=== PATIENT | female | born 1975 | race Two or more races ===

== ENCOUNTER 2024-02-29 04:35 | Day surgery (SDC) | payer BC, OTHER ==
[2024-02-24 14:46] VITALS: BMI 30.1
[2024-02-29] MEDS ORDERED: ONDANSETRON 4 MG/2 ML VIAL ONE (11:16)
[2024-02-29] MEDS ORDERED: LIDOCAINE HCL/PF 2% SDV 5ML VIAL ONE (11:16)
[2024-02-29] MEDS ORDERED: DEXAMETHASONE SOD PHOSPHATE 4 MG/1 ML VIAL ONE (11:16)
[2024-02-29] MEDS ORDERED: PROPOFOL 40 ML ONE (11:17)
[2024-02-29] MEDS ORDERED: MIDAZOLAM HCL 2 MG/2 ML SINGLE DOSE VIAL ONE (11:17)
[2024-02-29] MEDS ORDERED: ONDANSETRON 4 MG/2 ML VIAL IVPUSH PRN (11:36)
[2024-02-29] MEDS ORDERED: oxyCODONE HCL 5 MG TABLET PO PRN (11:36)
[2024-02-29] MEDS ORDERED: LACTATED RINGERS SOLUTION 1,000 ML IV SCH (11:45)
[2024-02-29] MEDS: ceFAZolin SODIUM 1 GM VIAL IVPB ONE (11:58)
[2024-02-29] MEDS ORDERED: ACETAMINOPHEN INJECTION 100 ML ONE (13:12)
[2024-02-29] MEDS: ACETAMINOPHEN 1000 MG/100 ML BAG IVPB ONE (13:20)
[2024-02-29 14:09] VITALS: RESP 20
[2024-02-29 15:24] VITALS: BP 112/67; PULSE 75; TEMP 98.4
== END 2024-02-29 15:25 | disposition home or self-care (01) ==
LOC: JASU-SURG 04:35
PROVIDERS: ATTEND Obstetrics & Gynecology
PROC: 0UDB8ZX Extraction of Endometrium, Via Natural or Artificial Opening Endoscopic, Diagnostic (ICD-10-PCS; principal; 2024-02-29 11:00)
DX: N92.1 Excessive and frequent menstruation with irregular cycle (principal)
CPT/HCPCS: 88305-TC; 94760; J0131